=== PATIENT | female | born 1960 | race Caucasian/White ===

== ENCOUNTER → 2016-11-03 | Outpatient (CLI) | payer OTHER ==
--- NOTE | 2016-11-06 18:03 | Diagnostic Imaging Report ---
Bilateral screening mammogram The current study was also evaluated with a Computer Aided Detection (CAD) system. INDICATION: Screening. No current complaints stated on the questionnaire. COMPARISON: 10/15/2015. FINDINGS: The breasts are composed of scattered fibroglandular densities. Benign-appearing calcifications are seen. Allowing for technique and positional differences, no suspicious change is seen. IMPRESSION: No significant change. ACR BI-RADS Category 2: Benign findings. Result letter will be mailed to the patient. Note: At least 10% of breast cancer is not imaged by mammography. Dictated by: Dictated on workstation # [id number]
== END ==
LOC: RAD 13:17
PROVIDERS: ATTEND Internal Medicine Geriatric Medicine
DX: Z12.31 Encounter for screening mammogram for malignant neoplasm of breast (principal)
CPT/HCPCS: 77067

== ENCOUNTER → 2017-11-16 | Outpatient (CLI) | payer OTHER ==
--- NOTE | 2017-11-29 15:38 | RADIOLOGY REPORT ---
NAME: [facility] REC#: [id number] PT STATUS: REG CLI : 1960 PHYSICIAN: JAYASHREE ALDRIDGE MD ADMIT DATE: 11/16/17/RAD CORRECTED Signed Date of Exam:11/16/17 MAMMO BILATERAL SCREENING INDICATION: Routine screening. COMPARISON: Prior study from 11/03/2016 and 10/15/2015. EXAMINATION: 2D and 3D bilateral screening mammography was performed with CAD. The current study was also evaluated with a Computer Aided Detection (CAD) system. FINDINGS: Scattered fibroglandular densities are identified, bilaterally. There are rounded areas of fat density in the retroareolar aspect of the right breast with associated calcifications present. This has the appearance of areas of oil cysts or fat necrosis. Much smaller area of lucency in the upper and outer left breast is noted, appearing similar and likely representing small area of oil cyst or fat necrosis. No spiculated mass or malignant appearing microcalcifications are seen. The axillae are unremarkable. IMPRESSION: BI-RADS category 2 No mammographic features suspicious for malignancy are identified. Dictated by: Dictated on workstation # [id number] Dict: 11/16/17 1444 Trans: 11/26/17 0842 [facility] [id number] Interpreted by: SUSI CHIANG MD Electronically signed by: SUSI CHIANG MD 11/26/17 0842 [facility]
== END ==
LOC: RAD 13:34
PROVIDERS: ATTEND Internal Medicine
DX: Z12.31 Encounter for screening mammogram for malignant neoplasm of breast (principal)
CPT/HCPCS: 77067

== ENCOUNTER → 2018-12-02 | Outpatient (CLI) | payer OTHER ==
--- NOTE | 2018-12-03 13:09 | Diagnostic Imaging Report ---
INDICATION: Routine screening. COMPARISON: 11/16/2017 and 11/03/2016. TECHNIQUE: 2D and 3D bilateral screening mammography was performed with CAD. FINDINGS: Scattered fibroglandular densities are identified bilaterally. Areas of fat necrosis in the retroareolar right breast and upper-outer left breast are again noted. No associated calcifications. No new mass or malignant appearing microcalcifications are seen. The axillae are unremarkable. IMPRESSION: No mammographic features suspicious for malignancy are identified. ACR BI-RADS Category 2: Benign findings. Result letter will be mailed to the patient. Note: At least 10% of breast cancer is not imaged by mammography. Dictated by: Dictated on workstation # [id number]
== END ==
LOC: RAD 14:31
PROVIDERS: ATTEND Internal Medicine
DX: Z12.31 Encounter for screening mammogram for malignant neoplasm of breast (principal)
CPT/HCPCS: 77067

== ENCOUNTER → 2019-07-22 | Outpatient (CLI) | payer OTHER ==
[2019-07-22 10:55] LABS: BASOPHILS % (AUTO) 0 % (0-10); EOSINOPHILS # (AUTO) 0.2 10^3/uL (0.0-0.3); EOSINOPHILS % (AUTO) 3 % (0-10); HEMATOCRIT 34 % (35-52); HEMOGLOBIN 11.2 G/DL (11.5-16.0); LYMPHOCYTES # (AUTO) 1.3 X 10^3 (1.0-4.0); LYMPHOCYTES % (AUTO) 19 % (12-44); MEAN CORPUSCULAR HEMOGLOBIN 30 PG (25-34); MEAN CORPUSCULAR HGB CONC 33 G/DL (32-36); MEAN CORPUSCULAR VOLUME 93 FL (80-99); MEAN PLATELET VOLUME 10.3 FL (7.4-10.4); MONOCYTES # (AUTO) 0.5 X 10^3 (0.0-1.0); MONOCYTES % (AUTO) 8 % (0-12); NEUTROPHILS # (AUTO) 4.5 X 10^3 (1.8-7.8); NEUTROPHILS % (AUTO) 70 % (42-75); PLATELET COUNT 283 10^3/uL (130-400); RED CELL DISTRIBUTION WIDTH 13.7 % (10.0-14.5); WHITE BLOOD COUNT 6.5 10^3/uL (4.3-11.0)
[2019-07-22 11:18] LABS: ERYTHROCYTE SEDIMENTATION RATE 84 MM/HR (0-30)
[2019-07-22 11:19] LABS: BUN/CREATININE RATIO 13; CALCIUM 9.4 MG/DL (8.5-10.1); CARBON DIOXIDE 26 MMOL/L (21-32); CHLORIDE 104 MMOL/L (98-107); CREATININE SERUM 0.79 MG/DL (0.60-1.30); GFR ESTIMATED > 60; GLUCOSE 111 MG/DL (70-105); POTASSIUM 4.3 MMOL/L (3.6-5.0); SODIUM 140 MMOL/L (135-145)
== END ==
LOC: LABNPT 10:20
DX: M00.9 Pyogenic arthritis, unspecified (principal)
CPT/HCPCS: 80048; 80202; 85025; 85652; 86141

== ENCOUNTER → 2019-07-28 | Outpatient (CLI) | payer OTHER ==
[2019-07-28 15:20] LABS: BASOPHILS # (AUTO) 0.1 10^3/uL (0.0-0.1); BASOPHILS % (AUTO) 1 % (0-10); EOSINOPHILS # (AUTO) 0.1 10^3/uL (0.0-0.3); EOSINOPHILS % (AUTO) 1 % (0-10); HEMATOCRIT 38 % (35-52); HEMOGLOBIN 12.1 G/DL (11.5-16.0); LYMPHOCYTES # (AUTO) 1.3 X 10^3 (1.0-4.0); LYMPHOCYTES % (AUTO) 22 % (12-44); MEAN CORPUSCULAR HEMOGLOBIN 30 PG (25-34); MEAN CORPUSCULAR HGB CONC 32 G/DL (32-36); MEAN CORPUSCULAR VOLUME 92 FL (80-99); MEAN PLATELET VOLUME 11.2 FL (7.4-10.4); MONOCYTES # (AUTO) 0.7 X 10^3 (0.0-1.0); MONOCYTES % (AUTO) 12 % (0-12); NEUTROPHILS # (AUTO) 3.8 X 10^3 (1.8-7.8); NEUTROPHILS % (AUTO) 63 % (42-75); PLATELET COUNT 336 10^3/uL (130-400); RED CELL DISTRIBUTION WIDTH 13.3 % (10.0-14.5)
[2019-07-28 15:25] LABS: BUN/CREATININE RATIO 20; CREATININE SERUM 0.89 MG/DL (0.60-1.30); GFR ESTIMATED > 60; VANCOMYCIN,TROUGH 14.1 UG/ML (10.0-20.0)
[2019-07-28 15:31] LABS: ERYTHROCYTE SEDIMENTATION RATE 48 MM/HR (0-30)
== END ==
LOC: LABNPT 08:00
PROVIDERS: ATTEND Internal Medicine
DX: Z51.81 Encounter for therapeutic drug level monitoring (principal); M00.862 Arthritis due to other bacteria, left knee; Z79.899 Other long term (current) drug therapy
CPT/HCPCS: 80202; 82565; 84520; 85025; 85652; 86141

== ENCOUNTER → 2020-03-24 | Outpatient (CLI) | payer OTHER ==
--- NOTE | 2020-03-25 13:04 | Diagnostic Imaging Report ---
INDICATION: Routine screening. Comparison is made with prior mammogram from 12/02/2018 and 11/16/2017. 2-D and 3-D bilateral screening mammography was performed with CAD. Scattered fibroglandular densities are identified bilaterally. Areas of fat necrosis with calcifications in the right breast are again noted. Small area of necrosis with calcifications outer left breast is stable as well. No new mass or malignant appearing microcalcifications are seen. Axillae are unremarkable. IMPRESSION: BI-RADS Category 2 No mammographic features suspicious for malignancy are identified. ACR BI-RADS Category 2: Benign findings. Result letter will be mailed to the patient. Note: At least 10% of breast cancer is not imaged by mammography. Dictated by: Dictated on workstation # [id number]
== END ==
LOC: RAD 15:00
DX: Z12.31 Encounter for screening mammogram for malignant neoplasm of breast (principal)
CPT/HCPCS: 77063; 77067

== ENCOUNTER 2022-04-02 15:12 | Emergency (ER) | payer OTHER ==
[~2022-04-02] VITALS: Ht 154 cm; Wt 86.1 kg
--- NOTE | 2022-04-02 15:25 | ED Upper Extremity ---
General Chief Complaint: Upper Extremity Stated Complaint: FALL RIGHT WRIST/LEFT LEG INJURY Source: patient Exam Limitations: no limitations (TRACEY WHITNEY APRN) History of Present Illness Date Seen by Provider: Apr 02, 2022 Time Seen by Provider: 15:22 Initial Comments 61 y/o female presents today with c/o right wrist pain and swelling, left thigh pain following a fall at home this afternoon. Pt states she tripped at home and tried to catch herself with right hand, left thigh landed on edge of stairs. Pt reports she has an artificial knee on the left and is having pain in femur just above the left knee. She denies LOC or hitting her head, back pain, neck pain, syncope, dizziness, vision changes, numbness, tingling, weakness, chest pain, SOA, other injuries. Location Injury Occurred: home Onset: other (1300 today) Pain/Injury Location: right wrist; left other (thigh) Method of Injury: fell Modifying Factors: Worse With Movement (TRACEY WHITNEY APRN) Allergies and Home Medications Allergies Coded Allergies: No Known Drug Allergies (Unverified , 04/02/22) Patient Home Medication List Home Medication List Reviewed: Yes (TRACEY WHITNEY APRN) Tramadol HCl (Tramadol HCl) 50 Mg Tablet, 50 MG PO Q4H PRN for wrist fracture Prescribed by: Tracey Whitnye on 04/02/22 1622 Last Action: New Order Review of Systems Constitutional: No dizziness, No fever, No malaise, No weakness EENTM: no symptoms reported Respiratory: No cough, No dyspnea on exertion, No short of breath Cardiovascular: No chest pain, No palpitations, No syncope Gastrointestinal: No abdominal pain, No nausea, No vomiting Musculoskeletal: No back pain; muscle pain; No muscle stiffness, No muscle weakness, No neck pain Skin: No change in color, No lesions, No lumps Psychiatric/Neurological: Denies Headache, Denies Numbness, Denies Paresthesia, Denies Seizure, Denies Tingling, Denies Tremors, Denies Weakness ( TRACEY WHITNEY APRN) Physical Exam Vital Signs Vital Signs - First Documented 04/02/22 15:15 Temp 36.6 Pulse 66 Resp 18 B/P (MAP) 195/80 (118) Pulse Ox 96 O2 Delivery Room Air (ALANNA INFANTE MD) Vital Signs Capillary Refill : (TRACEY WHITNEY APRN) Height, Weight, BMI Height: '" Weight: lbs. oz. kg; BMI Method: General Appearance: WD/WN, no apparent distress HEENT: normal ENT inspection Neck: non-tender, full range of motion, supple, normal inspection Cardiovascular: regular rate, rhythm, no edema, no murmur Respiratory: chest non-tender, lungs clear, normal breath sounds, no respiratory distress Gastrointestinal: normal bowel sounds, non tender, soft Back: normal inspection, no CVA tenderness, no vertebral tenderness Shoulder: normal inspection, non-tender, no evidence of injury, normal ROM Elbow/Forearm: normal inspection, Right (distal forearm is TTP, circumferential swelling of the right wrist), bone tenderness, limited ROM, pain, soft tissue tenderness, swelling Wrist: Yes bone tenderness, Yes limited ROM, Yes pain, Yes soft tissue tenderness, Yes swelling Hand: normal inspection, non-tender, no evidence of injury, normal ROM Neurologic/Tendon: normal sensation, normal motor functions, normal tendon functions, responds to pain Neurologic/Psychiatric: no motor/sensory deficits, alert, normal mood/affect, oriented x 3 Skin: normal color, warm/dry Lower extremities: pt ambulates with cane. left medial femur just superior to knee is TTP, no ecchymosis or swelling noted. Left hip is nontender, full ROM of LLE. RLE nontender, no evidence of injury, full painless ROM (TRACEY WHITNEY APRN) Progress/Results/Core Measures Results/Orders Medications Given in ED Current Medications Medications Dose Ordered Sig/Anisha Route Start Time Stop Time Status Last Admin Dose Admin Acetaminophen 650 mg ONCE ONCE PO 04/02/22 15:45 04/02/22 15:46 DC 04/02/22 15:48 650 MG Ibuprofen 600 mg ONCE ONCE PO 04/02/22 15:45 04/02/22 15:46 DC 04/02/22 15:48 600 MG Tramadol HCl 50 mg ONCE ONCE PO 04/02/22 16:30 04/02/22 16:31 DC 04/02/22 16:34 50 MG (ALANNA INFANTE MD) Vital Signs/I&O 04/02/22 04/02/22 15:15 16:40 Temp 36.6 36.6 Pulse 66 67 Resp 18 18 B/P (MAP) 195/80 (118) 147/79 Pulse Ox 96 97 O2 Delivery Room Air Room Air (ALANNA INFANTE MD) Progress Progress Note : Progress Note sugar tong splint applied by RN and tech. (TRACEY WHITNEY APRN) Initial ECG Impression Date: Apr 02, 2022 (TRACEY WHITNEY APRN) Departure Impression Primary Impression: Closed right radial fracture Disposition: 01 HOME, SELF-CARE Condition: Stable Departure-Patient Inst. Decision time for Depature: 16:09 (TRACEY WHITNEY APRN) Referrals: NO,LOCAL PHYSICIAN (PCP) Primary Care Physician JT LEE MD Patient Instructions: Wrist Fracture (DC) Add. Discharge Instructions: Rest, elevate the wrist as much as possible. Tylenol 500mg every 4 hours as needed. Motrin 600mg every 6 hours as needed. Ice as needed. Call Dr Lee's office tomorrow morning to schedule appointment. All discharge instructions reviewed with patient and/or family. Voiced understanding. Scripts Tramadol HCl (Tramadol HCl) 50 Mg Tablet 50 MG PO Q4H PRN for wrist fracture, #10 TAB Prov: TRACEY WHITNEY APRN 04/02/22 ATTENDING PHYSICIAN NOTE: I was physically present as attending physician in the emergency department during the care of this patient, but I was not directly involved in the decision making or delivery of care for this patient. (ALANNA INFANTE MD) TRACEY WHITNEY APRN Apr 02, 2022 15:25 ALANNA INFANTE MD Apr 02, 2022 19:37
[2022-04-02] MEDS ORDERED: ACETAMINOPHEN 325 MG TABLET PO ONE (15:45)
[2022-04-02] MEDS ORDERED: IBUPROFEN 600 MG (MOTRIN) TAB PO ONE (15:45)
--- NOTE | 2022-04-02 16:07 | Diagnostic Imaging Report ---
CLINICAL HISTORY: Fall. Left leg pain. COMPARISON: None. TECHNIQUE: 4 views of the left femur. FINDINGS: There is no acute fracture or dislocation of the left femur. Alignment is anatomic. Left total knee arthroplasty changes are noted. No periprosthetic fracture or loosening. No suspicious focal osseous lesion is seen. IMPRESSION: No acute fracture or dislocation in the left femur. Dictated by: Dictated on workstation # [id number]
--- NOTE | 2022-04-02 16:08 | Diagnostic Imaging Report ---
EXAMINATION: Right wrist radiographs, 3 views. COMPARISON: None. HISTORY: 61-year-old female, fall. Right wrist pain. FINDINGS: There is a comminuted displaced fracture of the distal radius involving at least the distal radial metaphysis. There is no clearly identified definite intra-articular fracture extension. There is a deformity of the ulnar styloid of uncertain exact age. IMPRESSION: 1. Comminuted displaced distal radius fracture involving at least the distal radial metaphysis without definite intra-articular fracture extension identified. 2. Age-indeterminate deformity of the ulnar styloid. Dictated by: Dictated on workstation # [id number]
[2022-04-02] MEDS ORDERED: TRM50T PO (16:22)
[2022-04-02 16:40] VITALS: BP 147/79
== END 2022-04-02 16:43 | disposition home or self-care (01) ==
LOC: EDUNIT# 15:12 → ER 15:15
DX: S52.91XA Unspecified fracture of right forearm, initial encounter for closed fracture (principal); M79.652 Pain in left thigh; Z28.311 Partially vaccinated for COVID-19; W10.9XXA Fall (on) (from) unspecified stairs and steps, initial encounter; Y92.009 Unspecified place in unspecified non-institutional (private) residence as the place of occurrence of the external cause
CPT/HCPCS: 29105; 73110; 73552

== ENCOUNTER → 2022-04-11 | Outpatient (CLI) | payer OTHER ==
[~2022-04-11] VITALS: Ht 154.9 cm; Wt 87.3 kg
[~2022-04-11] MED LIST: ACHD5005 PO; ATOR20TA66 PO; MELO15TA39 PO; METO200T48 PO; MULT-567 PO; TRM50T PO
== END | disposition home or self-care (01) ==
LOC: PREOP 13:14
PROVIDERS: ATTEND Orthopaedic Surgery
DX: Z01.818 Encounter for other preprocedural examination (principal)

== ENCOUNTER → 2022-04-11 | Outpatient (CLI) | payer OTHER | LOC: ORTHO 16:11 | PROVIDERS: ATTEND Orthopaedic Surgery | DX: S52.531A Colles' fracture of right radius, initial encounter for closed fracture (principal); X58.XXXA Exposure to other specified factors, initial encounter | CPT/HCPCS: 99203 ==

== ENCOUNTER 2022-04-12 08:39 | Day surgery (SDC) | payer OTHER ==
[~2022-04-12] VITALS: Ht 154.9 cm; Wt 87.1 kg
[2022-04-12] VITALS (12 sets, daily range): BP systolic 160–183; BP diastolic 75–96
[~2022-04-12 08:39] MED LIST changes: -ACHD5005 PO
--- NOTE | 2022-04-12 09:10 | Progress Note-Pre Operative ---
Pre-Operative Progress Note Date of Available H&P: Apr 11, 2022 Date H&P Reviewed: Apr 12, 2022 Time H&P Reviewed: 09:05 History & Physical: H&P Reviewed, Patient Examed, No changes noted Pre-Operative Diagnosis: Right Distal Radius Fracture KRISTOPHER LOVE MD Apr 12, 2022 09:10
[2022-04-12] MEDS ORDERED: ceFAZolin INJECTION 2,000 MG in NS (IVPB) 50 ML IV ONE (10:00)
[2022-04-12] MEDS: LACTATED RINGERS 1,000 ML IV PRN ×2 (10:02→11:09)
[2022-04-12] MEDS ORDERED: BUPIVACAINE 0.25% 30 ML (SENSORCAINE) VIAL ONE (10:02)
[2022-04-12] MEDS ORDERED: ROCURONIUM 10 MG/ML 5 ML SYRINGE IV ONE (10:03)
[2022-04-12] MEDS ORDERED: proPOfol 200 MG/20 ML (DIPRIVAN) VIAL IV ONE (10:03)
[2022-04-12] MEDS ORDERED: ONDANSETRON 4 MG/2 ML (SDV) Z0FRAN ONE (10:03)
[2022-04-12] MEDS ORDERED: fentaNYL INJ 100 MCG/2 ML AMP ONE (10:03)
[2022-04-12] MEDS ORDERED: MIDAZOLAM 2 MG/2 ML (VERSED) VIAL ONE (10:03)
[2022-04-12] MEDS ORDERED: LIDOCAINE PF 2% 5 ML (XYLOCAINE) VIAL ONE (10:03)
[2022-04-12] MEDS: ceFAZolin INJECTION 2,000 MG in NS (IVPB) 50 ML IV ONE ×2 (10:21→10:24)
[2022-04-12] MEDS ORDERED: BUPIVACAINE 0.25% 30 ML (SENSORCAINE) VIAL IJ ONE (10:59)
--- NOTE | 2022-04-12 11:42 | Operative Report - Ortho ---
Operative Report Surgeon (s)/Feeder Worker Power Unit Operator (s) Surgeon KRISTOPHER LOVE MD Feeder Worker Power Unit Operator n/a Pre-Operative Diagnosis Right Distal Radius Fracture Post-Operative Diagnosis same Operative Report Date of Procedure: Apr 12, 2022 Name of Procedure Performed: Open Reduction and Internal Fixation of Right Distal Radius Fracture Description & Findings After obtaining informed consent, the patient was taken to the operating room. General anesthesia was induced. Surgical timeout was taken. The right upper extremity was prepped and draped in the usual sterile fashion. Incision was made over the volar side of the wrist. Radial artery was identified and protected. Fascia was divided, retractors were placed, and the pronator was reflected. Fracture site was exposed. Reduction maneuver was performed using traction, wrist flexion, and ulnar deviation. A [employer] distal radius plate was selected and position against the bone using C-arm. A nonlocking screw was randa kena in the slot of the plate. 2 nonlocking screws were then placed in the most distal row of the plate and the more proximal row as well. Plate position and reduction were confirmed in the AP and lateral planes. An ulnar sided locking screw was placed in the distal row and the prior nonlocking screw was switched for the ulnar sided locking screw in the 2nd row. C-arm was once again utilized and noted to have good position of hardware with maintained reduction of fracture. 2 locking screws were then placed in the radial styloid position. 2 locking screws were placed in the diaphyseal portion of the plate. Images were obtained in the AP, and lateral and demonstrated adequate reduction of the fracture and appropriate position of the hardware. Final images were saved on the hard drive of the C-arm. Wound was irrigated with normal saline. Subcutaneous layer was closed with 3-0 vicryl. Skin was closed with 4-0 nylon. Wound was injected locally with marcaine. Arm was dressed with xeroform, 4x4s, webril, volar splint, and SHUKRI wrap. Patient tolerated the procedure well and was stable to the recovery room. Anesthesia Type General Estimated Blood Loss minimal Specimen(s) collected/removed None KRISTOPHER LOVE MD Apr 12, 2022 11:42
[2022-04-12] MEDS ORDERED: ACHD5005 PO (11:44)
[2022-04-12] MEDS ORDERED: morphine INJ 10 MG/ML 1ML (SYR OR VIAL) IVP ONE (11:45)
[2022-04-12] MEDS ORDERED: MEPERIDINE (DEMEROL) INJ 50 MG/ML IVP ONE (11:45)
[2022-04-12] MEDS ORDERED: ONDANSETRON 4 MG/2 ML (SDV) Z0FRAN IVP PRN (11:45)
[2022-04-12] MEDS ORDERED: fentaNYL INJ 100 MCG/2 ML AMP IVP ONE (11:45)
--- NOTE | 2022-04-12 11:46 | Anesthesia-General Post-Op ---
General Patient Condition Mental Status/LOC: Same as Preop Cardiovascular: Satisfactory Nausea/Vomiting: Absent Respiratory: Satisfactory Pain: Controlled Complications: Absent Post Op Complications Complications None Follow Up Care/Instructions Patient Instructions None needed. Anesthesia/Patient Condition Patient Condition Patient is doing well, no complaints, stable vital signs, no apparent adverse anesthesia problems. No complications reported per nursing. MALINA BILLS CRNA Apr 12, 2022 11:46
[2022-04-12] MEDS ORDERED: morphine INJ 10 MG/ML 1ML (SYR OR VIAL) ONE (11:53)
[2022-04-12] MEDS ORDERED: HYDROcodone/APAP 5 MG/325 MG (LORTAB) TAB PO ONE (14:00)
== END 2022-04-12 14:25 | disposition home or self-care (01) ==
LOC: SDC 08:39
PROVIDERS: ATTEND Orthopaedic Surgery
DX: S52.531A Colles' fracture of right radius, initial encounter for closed fracture (principal); E66.9 Obesity, unspecified; Z68.36 Body mass index [BMI] 36.0-36.9, adult; G47.33 Obstructive sleep apnea (adult) (pediatric); Z87.891 Personal history of nicotine dependence; W19.XXXA Unspecified fall, initial encounter
CPT/HCPCS: 87081

== ENCOUNTER → 2022-04-25 | Outpatient (CLI) | payer OTHER ==
[~2022-04-25] MED LIST changes: +ACHD5005 PO
== END ==
LOC: ORTHO 10:00
PROVIDERS: ATTEND Orthopaedic Surgery
DX: Z47.89 Encounter for other orthopedic aftercare (principal); E78.00 Pure hypercholesterolemia, unspecified; I10 Essential (primary) hypertension

== ENCOUNTER → 2022-05-17 | Outpatient (CLI) | payer OTHER ==
--- NOTE | 2022-05-17 18:10 | Diagnostic Imaging Report ---
INDICATION: Fracture. COMPARISON: 04/02 FINDINGS: Plate and screws treat the comminuted distal radial fracture in much improved alignment with resolution of the dorsal angulation. No articular offset. Avulsion of the ulnar styloid stable. No adverse development. IMPRESSION: Markedly improved alignment of distal radius post ORIF, no adverse change. Dictated by: Dictated on workstation # [id number]
== END ==
LOC: ORTHO 10:54
PROVIDERS: ATTEND Orthopaedic Surgery
DX: Z47.89 Encounter for other orthopedic aftercare (principal); E78.00 Pure hypercholesterolemia, unspecified; I10 Essential (primary) hypertension
CPT/HCPCS: 73110

== ENCOUNTER → 2022-06-15 | Outpatient (CLI) | payer OTHER ==
--- NOTE | 2022-06-15 19:58 | Diagnostic Imaging Report ---
INDICATION: Postop. It is compared with 05/17/2022. FINDINGS: Plate and screws at the distal radius stable. Fragmentation and avulsions off the ulnar styloid unchanged. No articular offset to the fractures of the distal radius which showed new bone formation and partial healing. IMPRESSION: Stable alignment of postop distal radial fracture. Unchanged comminuted avulsions of the ulnar styloid. No articular offset or adverse development. Dictated by: Dictated on workstation # [id number]
== END ==
LOC: ORTHO 11:05
PROVIDERS: ATTEND Orthopaedic Surgery
DX: Z09 Encounter for follow-up examination after completed treatment for conditions other than malignant neoplasm (principal)
CPT/HCPCS: 73110

== ENCOUNTER → 2022-07-18 | Outpatient (CLI) | payer OTHER | LOC: ORTHO 14:56 | PROVIDERS: ATTEND Orthopaedic Surgery | DX: Z09 Encounter for follow-up examination after completed treatment for conditions other than malignant neoplasm (principal); I10 Essential (primary) hypertension; E78.00 Pure hypercholesterolemia, unspecified ==